=== PATIENT | male | born 1965 | race Caucasian/White ===

== ENCOUNTER 2017-11-28 00:16 | Inpatient (IN) | payer MEDICAID, OTHER, SELFPAY ==
[~2017-11-28] VITALS: Ht 162.6 cm; Wt 68.4 kg
[2017-11-28 00:46] LABS: BASOPHILS # (AUTO) 0.06 x10^3/uL (0-0.1); BASOPHILS % (AUTO) 1 % (0-1); EOSINOPHILS # (AUTO) 0.12 x10^3/uL (0-0.4); EOSINOPHILS % (AUTO) 2 % (1-7); LYMPHOCYTES # (AUTO) 1.66 x10^3/uL (1-3.4); LYMPHOCYTES % (AUTO) 30 % (22-44); MD NO; MEAN CORPUSCULAR HEMOGLOBIN 36.6 pg (27.5-34.5); MEAN CORPUSCULAR HGB CONC 34.3 g/dL (33.2-36.2); MEAN CORPUSCULAR VOLUME 106.8 fL (81-97); MEAN PLATELET VOLUME 7.7 fL (7.4-10.4); MONOCYTES # (AUTO) 0.66 x10^3/uL (0.2-0.8); MONOCYTES % (AUTO) 12 % (2-9); NEUTROPHILS # (AUTO) 3.03 x10^3/uL (1.8-6.8); NEUTROPHILS % (AUTO) 55 % (42-75); PLATELET COUNT 211 x10^3/uL (130-400); RED BLOOD COUNT 4.63 x10^6/uL (4.38-5.82); RED CELL DISTRIBUTION WIDTH 13.8 % (9.4-14.8)
[2017-11-28 00:55] LABS: INTERNATIONAL NORMALIZED RATIO 1.03 (0.93-1.1); PROTHROMBIN TIME 10.7 Seconds (9.6-11.5)
[2017-11-28 01:00] LABS: ALANINE AMINOTRANSFERASE 112 U/L (12-78); ALBUMIN 4.1 g/dL (3.4-5.0); ANION GAP 14 mmol/L (5-15); CALCIUM 8.9 mg/dL (8.5-10.1); CHLORIDE 102 mmol/L (98-107); CREATININE 0.95 mg/dL (0.7-1.3)
[2017-11-28 01:02] LABS: ALKALINE PHOSPHATASE 113 U/L (45-117); BILIRUBIN,TOTAL 0.9 mg/dL (0.2-1.0); TOTAL PROTEIN 7.8 g/dL (6.4-8.2)
[2017-11-28] MEDS ORDERED: MIDAZOLAM 1 MG/ML, 2ML IVPush ONE (03:00)
[2017-11-28] MEDS ORDERED: AcetaZOLAMIDE INJ 500 MG IVPush ONE (03:00)
[2017-11-28] MEDS ORDERED: LIDOCAINE/MPF 2%-EPI 1:200K, 20 ML INFIL ONE (03:00)
[2017-11-28] MEDS ORDERED: FENTANYL PF 100 MCG/2ML ONE (03:12)
[2017-11-28] MEDS: PLEASE ENTER HEIGHT AND WEIGHT MC SCH ×2 (03:30→11:30)
[2017-11-28] MEDS ORDERED: FENTANYL PF 100 MCG/2ML IV ONE (03:30)
[2017-11-28] MEDS ORDERED: MIDAZOLAM 1 MG/ML, 2ML ONE ×3 (03:43→03:59)
[2017-11-28] MEDS ORDERED: MIDAZOLAM 1 MG/ML, 5ML IVPush ONE (04:30)
[2017-11-28] MEDS ORDERED: TIMOLOL OPHTH 0.5%, 5ML LEFTEYE SCH (04:37)
[2017-11-28] MEDS: BRIMONIDINE TART. OPHTH 0.2%, 5ML LEFTEYE SCH ×4 (04:38→16:11)
[2017-11-28] MEDS ORDERED: POLYETHYLENE GLYCOL 17 GM PACKET PO PRN (05:30)
[2017-11-28] MEDS ORDERED: ONDANSETRON 2MG/ML, 2ML IVPush PRN (05:30)
[2017-11-28] MEDS ORDERED: NICOTINE 7 MG/24 HR PATCH.TD24 TD SCH (05:30)
[2017-11-28] MEDS ORDERED: ACETAMINOPHEN 325 MG TABLET PO PRN (05:30)
[2017-11-28] MEDS ORDERED: hydrALAzine 20 MG/ML, 1ML IVPush PRN (05:30)
[2017-11-28] MEDS ORDERED: BISACODYL 10 MG SUPP PR PRN (05:30)
[2017-11-28] MEDS ORDERED: morphine SULFATE 10 MG/ML, 1ML IVPush PRN (05:30)
[2017-11-28] MEDS: ERYTHROMYCIN OPHTH 0.5%, 1GM LEFTEYE SCH ×3 (06:00→16:11)
[2017-11-28 07:35] VITALS: BP 111/73
[2017-11-28] MEDS: OXYcodone IR 5MG TABLET PO PRN ×3 (08:59→16:12)
[2017-11-28] MEDS: SODIUM CHLORIDE 0.9% 1,000 ML IV SCH ×2 (09:00→15:15)
[2017-11-28] MEDS ORDERED: CALCIUM CARBONATE 500 MG TAB.CHEW PO PRN (09:00)
[2017-11-28] MEDS ORDERED: SENNA/DOCUSATE TABLET PO SCH (09:00)
[2017-11-28 09:01] VITALS: BP 123/78
[2017-11-28] MEDS ORDERED: IBUP200C5 PO (13:18)
[2017-11-28] MEDS ORDERED: BRIM5DRO4 OP (13:31)
[2017-11-28] MEDS ORDERED: ACET500C PO (13:34)
[2017-11-28] MEDS ORDERED: TIMO5DRO28 OP (13:35)
[2017-11-28 13:49] VITALS: BP 108/66
[2017-11-28] MEDS ORDERED: ERYT1OIN5 OP (14:46)
== END 2017-11-28 17:05 | disposition home or self-care (01) | DRG 115 ==
LOC: ED 02:33 → EDIP 04:28 → 4NOR 06:13 → DCLOUNGE 16:38
PROVIDERS: ADMIT Internal Medicine; ATTEND Internal Medicine
PROC: 08N1XZZ Release Left Eye, External Approach (ICD-10-PCS; principal; 2017-11-28)
DX: H57.8 Other specified disorders of eye and adnexa (principal); H05.20 Unspecified exophthalmos; T79.A0XA Compartment syndrome, unspecified, initial encounter; D75.89 Other specified diseases of blood and blood-forming organs; F10.129 Alcohol abuse with intoxication, unspecified; S00.03XA Contusion of scalp, initial encounter; H46.9 Unspecified optic neuritis; F17.200 Nicotine dependence, unspecified, uncomplicated; H57.12 Ocular pain, left eye; R79.89 Other specified abnormal findings of blood chemistry; T14.8XXA Other injury of unspecified body region, initial encounter; X58.XXXA Exposure to other specified factors, initial encounter; Y99.8 Other external cause status; Z88.0 Allergy status to penicillin; Y93.89 Activity, other specified; Y92.89 Other specified places as the place of occurrence of the external cause
CPT/HCPCS: 36415; 70450; 70486; 71045; 72125; 80053; 80307; 83690; 85025; 85610; 85730; 93005; 96374; 96375; 96376; J2250; J3010; J3490; J1120; J7030